=== PATIENT | female | born 1980 | race African-American/Black ===

== ENCOUNTER 2017-09-01 10:42 | Inpatient (IN) | payer MEDICAID ==
[~2017-09-01] VITALS: Ht 170.2 cm; Wt 59.1 kg
[~2017-09-01 10:42] MED LIST: ALBUPOW26 INH; GABA300C10 PO; HYDR4TAB21 PO; HYDR500T13 PO; MEPE50TA32 PO
[2017-09-01 14:04] LABS: Basophils # (auto) 0 uL; Basophils % (auto) 0.6 % (0.0-2.0); Eosinophils # (auto) 0.2 uL; Eosinophils % (auto) 3.1 % (0.0-7.0); Hematocrit 38.5 % (36.0-46.0); Lymphocytes # (auto) 2.5 uL; Lymphocytes % (auto) 30.1 % (10.0-50.0); Mean Corpuscular Hemoglobin 28.1 pg (28.0-32.0); Mean Corpuscular Hgb Conc. 33.7 g/dL (32.0-36.0); Mean Corpuscular Volume 83.2 fL (80.0-100.0); Monocytes # (auto) 0.4 uL; Monocytes % (auto) 4.6 % (0.0-12.0); Neutrophils % (auto) 61.6 % (37.0-80.0); Platelet Count (auto) 268 10^3/uL (140-450); Red Blood Cells 4.63 10^6/uL (4.0-5.20); Red Cell Distribution Width 16.3 % (11.8-14.3); White Blood Cell 8.1 10^3/uL (4.4-10.8)
[2017-09-01 14:22] LABS: Alanine Aminotransferase 11 U/L (13-56); Albumin 3.8 g/dL (3.4-5.0); Anion Gap 9 (5-15); Aspartate Aminotransferase 14 U/L (15-37); BUN/Creatinine Ratio 14.3; Blood Urea Nitrogen 12 mg/dL (7-18); Calcium 8.7 mg/dL (8.5-10.1); Carbon Dioxide 23 mmol/L (21-32); Chloride 108 mmol/L (98-107); GFR African American 98 mL/min; GFR Non-African American 81 mL/min; Glucose 81 mg/dL (74-106); Potassium 3.4 mmol/L (3.5-5.1); Sodium 140 mmol/L (136-145)
[2017-09-01 14:29] LABS: Alkaline Phosphatase 56 U/L (45-117); Bilirubin, Total 0.5 mg/dL (0.2-1.0); Total Protein 7.7 g/dL (6.4-8.2)
[2017-09-01] MEDS ORDERED: SODIUM CHLORIDE 0.9% 1,000 ML IV ONE (16:30)
[2017-09-01] MEDS ORDERED: MORPHINE SULFATE 4 MG/ML SYR/VIAL IV ONE (16:30)
[2017-09-01] MEDS ORDERED: ONDANSETRON HCL 4 MG/2 ML VIAL IV ONE (16:30)
[2017-09-01] MEDS ORDERED: HYDROmorphone HCL 2 MG/ML VL IV ONE (18:00)
[2017-09-01] MEDS ORDERED: DOCUSATE SOD 100 MG CAP PO PRN (20:00)
[2017-09-01] MEDS ORDERED: POTASSIUM CHLORIDE 8 MEQ TAB PO ONE (20:00)
[2017-09-01 22:00] VITALS: BP 160/115
[2017-09-01] MEDS: MORPHINE SULFATE 10 MG/ML INJ 1ML SDV IV PRN (22:14)
[2017-09-01] MEDS: GABAPENTIN 300 MG CAP PO SCH (22:16)
[2017-09-01] MEDS: FAMOTIDINE 20 MG TAB PO SCH (22:17)
[2017-09-01] MEDS: HYDROcodone-ACET 5/325MG TAB PO PRN (22:17)
[2017-09-01] MEDS: TEMAZEPAM 15 MG CAP PO PRN (22:17)
[2017-09-01] MEDS: SODIUM CHLORIDE 0.9% 1,000 ML IV SCH (23:00)
[2017-09-02] MEDS: ALBUTEROL SULF 2.5 MG/0.5ML(0.5%) NEB SOLN NEB SCH ×4 (01:15→21:39)
[2017-09-02] MEDS: MORPHINE SULFATE 10 MG/ML INJ 1ML SDV IV PRN ×3 (02:26→06:33)
[2017-09-02] MEDS: HYDROcodone-ACET 5/325MG TAB PO PRN ×2 (02:33→06:52)
[2017-09-02] MEDS: SODIUM CHLORIDE 0.9% 1,000 ML IV SCH ×3 (04:14→20:54)
[2017-09-02 05:00] VITALS: BP 139/103
[2017-09-02 05:52] LABS: Basophils # (auto) 0.1 uL; Basophils % (auto) 0.7 % (0.0-2.0); Eosinophils # (auto) 0.4 uL; Eosinophils % (auto) 4.9 % (0.0-7.0); Hematocrit 36.9 % (36.0-46.0); Hemoglobin 12.7 g/dL (12.2-16.2); Lymphocytes # (auto) 3.9 uL; Lymphocytes % (auto) 51.6 % (10.0-50.0); Mean Corpuscular Hemoglobin 28.5 pg (28.0-32.0); Mean Corpuscular Hgb Conc. 34.4 g/dL (32.0-36.0); Mean Corpuscular Volume 82.6 fL (80.0-100.0); Monocytes # (auto) 0.5 uL; Monocytes % (auto) 6.3 % (0.0-12.0); Neutrophils # (auto) 2.7 uL; Neutrophils % (auto) 36.5 % (37.0-80.0); Platelet Count (auto) 265 10^3/uL (140-450); Red Blood Cells 4.47 10^6/uL (4.0-5.20); White Blood Cell 7.5 10^3/uL (4.4-10.8)
[2017-09-02 06:06] LABS: Calcium 8.6 mg/dL (8.5-10.1); Potassium 3.5 mmol/L (3.5-5.1)
[2017-09-02 06:16] LABS: Albumin 3.6 g/dL (3.4-5.0); BUN/Creatinine Ratio 12.2; Bilirubin, Total 0.4 mg/dL (0.2-1.0); Total Protein 7.7 g/dL (6.4-8.2)
[2017-09-02] MEDS: GABAPENTIN 300 MG CAP PO SCH ×3 (06:33→22:37)
[2017-09-02 07:30] VITALS: BP 130/82
[2017-09-02] MEDS: ONDANSETRON HCL 4 MG/2 ML VIAL IV PRN ×4 (08:35→23:31)
[2017-09-02] MEDS: HYDROmorphone HCL 2 MG TAB PO PRN ×4 (10:49→22:38)
[2017-09-02] MEDS: MULTIPLE VITAMIN TAB PO SCH (10:50)
[2017-09-02] MEDS: FAMOTIDINE 20 MG TAB PO SCH ×2 (10:50→22:38)
[2017-09-02] MEDS: ENALAPRIL MALEATE 10 MG TAB PO SCH (10:52)
[2017-09-02 13:47] VITALS: BP 130/82
[2017-09-02 17:04] VITALS: BP 109/61
[2017-09-02] MEDS: ACETAMINOPHEN 325 MG TAB PO PRN ×2 (17:08→22:38)
[2017-09-02 22:00] VITALS: BP 129/102
[2017-09-02] MEDS: TEMAZEPAM 15 MG CAP PO PRN (22:38)
[2017-09-03 01:14] VITALS: BP 109/61
[2017-09-03] MEDS: ALBUTEROL SULF 2.5 MG/0.5ML(0.5%) NEB SOLN NEB SCH ×4 (02:13→20:16)
[2017-09-03] MEDS: HYDROmorphone HCL 2 MG TAB PO PRN ×2 (04:24→05:44)
[2017-09-03] MEDS: SODIUM CHLORIDE 0.9% 1,000 ML IV SCH ×3 (04:53→21:54)
[2017-09-03] MEDS: ONDANSETRON HCL 4 MG/2 ML VIAL IV PRN ×4 (04:54→22:50)
[2017-09-03 05:40] LABS: Basophils # (auto) 0 uL; Basophils % (auto) 0.5 % (0.0-2.0); Eosinophils # (auto) 0.3 uL; Hematocrit 37.6 % (36.0-46.0); Hemoglobin 13.2 g/dL (12.2-16.2); Mean Corpuscular Hemoglobin 28.4 pg (28.0-32.0); Monocytes # (auto) 0.3 uL; Neutrophils # (auto) 4.5 uL; Neutrophils % (auto) 54.5 % (37.0-80.0); Nucleated Red Blood Cells % 0.2 %; Platelet Count (auto) 293 10^3/uL (140-450); Red Blood Cells 4.64 10^6/uL (4.0-5.20); Red Cell Distribution Width 16.4 % (11.8-14.3); White Blood Cell 8.2 10^3/uL (4.4-10.8)
[2017-09-03] MEDS: GABAPENTIN 300 MG CAP PO SCH ×3 (05:43→22:42)
[2017-09-03 05:59] VITALS: BP 138/101
[2017-09-03 06:07] LABS: Albumin 3.7 g/dL (3.4-5.0); BUN/Creatinine Ratio 11.1; Bilirubin, Total 0.3 mg/dL (0.2-1.0); Calcium 8.4 mg/dL (8.5-10.1); Potassium 3.5 mmol/L (3.5-5.1); Total Protein 7.8 g/dL (6.4-8.2)
[2017-09-03 09:00] VITALS: BP 149/95
[2017-09-03] MEDS ORDERED: HYDROmorphone HCL 2 MG/ML VL IV ONE (10:30)
[2017-09-03] MEDS: FAMOTIDINE 20 MG TAB PO SCH ×2 (10:34→22:42)
[2017-09-03] MEDS: MULTIPLE VITAMIN TAB PO SCH (10:34)
[2017-09-03] MEDS: ENALAPRIL MALEATE 10 MG TAB PO SCH (10:38)
[2017-09-03 13:00] VITALS: BP 143/91
[2017-09-03] MEDS: HYDROmorphone HCL 2 MG/ML VL IV PRN ×2 (16:39→22:38)
[2017-09-03] MEDS ORDERED: TROLAMINE SALICYLATE 10% TOP CREAM TOP PRN (16:45)
[2017-09-03] MEDS: TEMAZEPAM 15 MG CAP PO PRN (23:51)
[2017-09-04] MEDS: TEMAZEPAM 15 MG CAP PO PRN
[2017-09-04] MEDS: ALBUTEROL SULF 2.5 MG/0.5ML(0.5%) NEB SOLN NEB SCH ×4 (01:02→18:10)
[2017-09-04] MEDS: HYDROmorphone HCL 2 MG/ML VL IV PRN ×3 (04:53→16:55)
[2017-09-04] MEDS: ONDANSETRON HCL 4 MG/2 ML VIAL IV PRN ×3 (04:53→16:55)
[2017-09-04 05:16] VITALS: BP 133/83
[2017-09-04 06:25] LABS: Basophils # (auto) 0 uL; Basophils % (auto) 0.4 % (0.0-2.0); Eosinophils # (auto) 0.6 uL; Eosinophils % (auto) 8.7 % (0.0-7.0); Hematocrit 38.6 % (36.0-46.0); Hemoglobin 13.3 g/dL (12.2-16.2); Lymphocytes # (auto) 2.4 uL; Lymphocytes % (auto) 31.5 % (10.0-50.0); Mean Corpuscular Hemoglobin 28.4 pg (28.0-32.0); Mean Corpuscular Hgb Conc. 34.6 g/dL (32.0-36.0); Mean Corpuscular Volume 82.1 fL (80.0-100.0); Monocytes # (auto) 0.4 uL; Monocytes % (auto) 5.6 % (0.0-12.0); Neutrophils % (auto) 53.8 % (37.0-80.0); Nucleated Red Blood Cells % 0.1 %; Platelet Count (auto) 313 10^3/uL (140-450); Red Cell Distribution Width 16.2 % (11.8-14.3); White Blood Cell 7.5 10^3/uL (4.4-10.8)
[2017-09-04 06:40] LABS: BUN/Creatinine Ratio 9.5; Calcium 8.6 mg/dL (8.5-10.1); Potassium 3.7 mmol/L (3.5-5.1)
[2017-09-04] MEDS: SODIUM CHLORIDE 0.9% 1,000 ML IV SCH (06:43)
[2017-09-04] MEDS: GABAPENTIN 300 MG CAP PO SCH ×2 (06:43→14:00)
[2017-09-04 08:30] VITALS: BP 132/96
[2017-09-04] MEDS: ENALAPRIL MALEATE 10 MG TAB PO SCH (09:16)
[2017-09-04] MEDS: MULTIPLE VITAMIN TAB PO SCH (09:17)
[2017-09-04] MEDS: FAMOTIDINE 20 MG TAB PO SCH (09:17)
[2017-09-04] MEDS: ACETAMINOPHEN 325 MG TAB PO PRN (11:07)
[2017-09-04 12:41] VITALS: BP 147/94
== END 2017-09-04 19:38 | disposition home or self-care (01) | DRG 662 ==
LOC: ER 10:42 → EDBD 10:42 → OVERFLOW 10:43 → WEST WING 21:35
PROVIDERS: ADMIT Internal Medicine; ATTEND Internal Medicine
DX: D57.00 Hb-SS disease with crisis, unspecified (principal); I10 Essential (primary) hypertension; F17.210 Nicotine dependence, cigarettes, uncomplicated; J45.909 Unspecified asthma, uncomplicated; G89.4 Chronic pain syndrome; M54.2 Cervicalgia; Z80.3 Family history of malignant neoplasm of breast; Z82.49 Family history of ischemic heart disease and other diseases of the circulatory system; Z83.3 Family history of diabetes mellitus; Z85.42 Personal history of malignant neoplasm of other parts of uterus; Z87.442 Personal history of urinary calculi; Z98.51 Tubal ligation status
CPT/HCPCS: 36415; 71046; 72125; 80048; 80053; 84484; 85025; 85045; 93005; 94640; 96361; 96374; 96375; J2405

== ENCOUNTER 2017-12-07 11:33 | Emergency (ER) | payer MEDICAID ==
[~2017-12-07] VITALS: Ht 165.1 cm; Wt 56.7 kg
[2017-12-07] MEDS ORDERED: SODIUM CHLORIDE 0.9% 1,000 ML IV ONE ×2 (12:00→15:30)
[2017-12-07 12:06] LABS: Urine Bacteria NONE SEEN /hpf (None Seen); Urine Blood Negative /uL (Negative); Urine Specific Gravity 1.017 (1.001-1.035); Urine WBC 1 /hpf (0 - 5)
[2017-12-07 12:10] LABS: Basophils # (auto) 0.1 uL; Basophils % (auto) 1.1 % (0.0-2.0); Eosinophils # (auto) 0.1 uL; Eosinophils % (auto) 1.5 % (0.0-7.0); Hematocrit 39.1 % (36.0-46.0); Hemoglobin 13.2 g/dL (12.2-16.2); Lymphocytes # (auto) 2.3 uL; Lymphocytes % (auto) 34.2 % (10.0-50.0); Mean Corpuscular Hemoglobin 28.3 pg (28.0-32.0); Mean Corpuscular Hgb Conc. 33.8 g/dL (32.0-36.0); Mean Corpuscular Volume 83.8 fL (80.0-100.0); Monocytes # (auto) 0.3 uL; Neutrophils # (auto) 3.9 uL; Neutrophils % (auto) 58.2 % (37.0-80.0); Nucleated Red Blood Cells % 0.1 %; Platelet Count (auto) 231 10^3/uL (140-450); Red Blood Cells 4.67 10^6/uL (4.0-5.20); Red Cell Distribution Width 16.5 % (11.8-14.3); White Blood Cell 6.7 10^3/uL (4.4-10.8)
[2017-12-07 12:24] LABS: Albumin 3.8 g/dL (3.4-5.0); BUN/Creatinine Ratio 13.5; Calcium 8.5 mg/dL (8.5-10.1); Potassium 4.1 mmol/L (3.5-5.1)
[2017-12-07 12:26] LABS: Bilirubin, Total 0.4 mg/dL (0.2-1.0); Total Protein 7.5 g/dL (6.4-8.2)
[2017-12-07] MEDS ORDERED: MORPHINE SULFATE 4 MG/ML SYR/VIAL IV ONE ×2 (13:00→15:30)
[2017-12-07] MEDS ORDERED: ONDANSETRON HCL 4 MG/2 ML VIAL IV ONE ×2 (13:00→15:30)
[2017-12-07 16:54] VITALS: BP 135/98
== END 2017-12-07 17:08 | disposition home or self-care (01) ==
LOC: EDBD 11:33 → ER 11:33
DX: D57.1 Sickle-cell disease without crisis (principal); J45.909 Unspecified asthma, uncomplicated; I10 Essential (primary) hypertension; F17.210 Nicotine dependence, cigarettes, uncomplicated; F12.10 Cannabis abuse, uncomplicated
CPT/HCPCS: 36415; 71045; 80053; 81001; 84702; 85025; 93005; 96361; 96374; 96375; 96376; 99285; J2270; J2405; J7030

== ENCOUNTER 2018-02-07 21:18 | Emergency (ER) | payer MEDICAID ==
[~2018-02-07] VITALS: Ht 170.2 cm; Wt 56.7 kg
[2018-02-07 22:25] LABS: Urine Bacteria MANY /hpf (None Seen); Urine Blood 2+ /uL (Negative); Urine Specific Gravity 1.004 (1.001-1.035); Urine WBC 42 /hpf (0 - 5)
[2018-02-08 00:42] LABS: Basophils # (auto) 0.1 uL; Eosinophils # (auto) 0.1 uL; Eosinophils % (auto) 1.3 % (0.0-7.0); Hemoglobin 13.4 g/dL (12.2-16.2); Lymphocytes # (auto) 4.7 uL; Monocytes # (auto) 0.3 uL; Neutrophils # (auto) 4.4 uL; Red Cell Distribution Width 14.8 % (11.8-14.3); White Blood Cell 9.7 10^3/uL (4.4-10.8)
[2018-02-08 00:44] LABS: Basophils % (auto) 1.5 % (0.0-2.0); Hematocrit 38.8 % (36.0-46.0); Lymphocytes % (auto) 49.1 % (10.0-50.0); Mean Corpuscular Hemoglobin 28.8 pg (28.0-32.0); Mean Corpuscular Hgb Conc. 34.5 g/dL (32.0-36.0); Mean Corpuscular Volume 83.3 fL (80.0-100.0); Monocytes % (auto) 2.8 % (0.0-12.0); Neutrophils % (auto) 45.3 % (37.0-80.0); Nucleated Red Blood Cells % 0.3 %; Platelet Count (auto) 434 10^3/uL (140-450); Red Blood Cells 4.65 10^6/uL (4.0-5.20)
[2018-02-08 00:57] LABS: Albumin 3.8 g/dL (3.4-5.0); BUN/Creatinine Ratio 8.9; Calcium 8.9 mg/dL (8.5-10.1); Potassium 3.7 mmol/L (3.5-5.1)
[2018-02-08 01:00] LABS: Bilirubin, Total 0.2 mg/dL (0.2-1.0); Total Protein 8.2 g/dL (6.4-8.2)
[2018-02-08] MEDS ORDERED: SODIUM CHLORIDE 0.9% 1,000 ML IV ONE (04:30)
[2018-02-08] MEDS ORDERED: ONDANSETRON HCL 4 MG/2 ML VIAL IV ONE (04:30)
[2018-02-08] MEDS ORDERED: CEFTRIAXONE SODIUM 2 GM in D5W 5% 50 ML IV ONE (04:30)
[2018-02-08] MEDS ORDERED: MEPERIDINE HCL (50 MG/ML) 1 ML VIAL IV ONE (04:30)
[2018-02-08] MEDS ORDERED: cefTRIAXone 1GM/10ml IVPUSH 20 ML IV ONE (04:47)
[2018-02-08 05:01] VITALS: BP 128/102
== END 2018-02-08 06:28 | disposition home or self-care (01) ==
LOC: ER 21:18
DX: N39.0 Urinary tract infection, site not specified (principal); D57.00 Hb-SS disease with crisis, unspecified; J45.909 Unspecified asthma, uncomplicated; I10 Essential (primary) hypertension; F17.210 Nicotine dependence, cigarettes, uncomplicated
CPT/HCPCS: 36415; 74176; 80053; 81001; 85025; 85045; 96374; 96375; 99285; J0696; J2175; J2405; 96365; J7060